=== PATIENT | female | born 1970 | race African-American/Black ===

== ENCOUNTER 2018-11-30 13:12 | Outpatient (CLI) | payer OTHER ==
--- NOTE | 2018-11-30 14:50 | Ultrasound Report ---
ULTRASOUND PELVIC COMPLETE ULTRASOUND TRANSVAGINAL HISTORY: Pelvic pain TECHNIQUE: Transabdominal and transvaginal ultrasound with color Doppler imaging. FINDINGS: The uterus is anteverted. The uterus measures 8.6 x 4.7 x 4.9 cm. No uterine mass is identified. A 1 cm nabothian cyst is noted in the cervix. The endometrium measures 1 cm in thickness. There are 2 tiny cystic areas within the endometrium whic h probably represent tiny endometrial cysts. No obvious pole within the structures. The right ovary is unremarkable measuring 2.1 x 1.0 x 1.8 cm. The left ovary measures 1.8 x 1.4 x 2.9 cm. A 1.4 x 0.9 cm simple cyst is noted in the left ovary. No pelvic fluid collection. IMPRESSION: 1.4 cm left ovarian cyst. Tiny cystic areas in the endometrium as described above. Nabothian cyst in the cervix. Signer Name: Paco Azul Jr, MD Signed: 11/30/2018 2:46 PM Workstation Name: [id number]
--- NOTE | 2018-11-30 15:58 | Mammography Report ---
BILATERAL DIGITAL SCREENING MAMMOGRAMS WITH CAD INDICATION: Screening. COMPARISONS: None available. However she has apparently had a prior mammogram at [facility]. FINDINGS: Craniocaudal and mediolateral oblique views of both breasts were obtained using 2-D digital acquisition.In addition to standard review, the examination was analyzed for possible abnormalities using a computer-assisted detection device (iCAD). The breast tissue is heterogeneously dense, which may obscure small masses. Bilateral parenchymal asymmetries require comparison with the prior mammogram or additional imaging. IMPRESSION: Comparison with the previous mammogram is required. We will attempt to obtain a prior mammogram for c omparison. If we did not obtain a prior mammogram within 30 days, a revised report will be issued rec ommending a recall for additional imaging. Please be advised that the patient should not schedule an appointment for return until adequate time (at least 2 weeks) has passed breast to obtain the prior m ammogram. BI-RADS CATEGORY 0: INCOMPLETE - NEED ADDITIONAL IMAGING EVALUATION AND/OR PRIOR MAMMOGRAMS FOR COMP ARISON Information is entered into a reminder system for a target due date for the next mammogram. The resul ts and recommendations were sent to the patient by mail. Signer Name: Livan Adkins MD Signed: 11/30/2018 3:54 PM Workstation Name: [id number]
== END 2018-11-30 13:13 | disposition home or self-care (01) ==
LOC: US 13:12
PROVIDERS: ATTEND General Practice
DX: Z12.11 Encounter for screening for malignant neoplasm of colon (principal); N83.202 Unspecified ovarian cyst, left side; N88.8 Other specified noninflammatory disorders of cervix uteri
CPT/HCPCS: 76830; 76856; 77067

== ENCOUNTER 2019-06-18 11:21 | Outpatient (CLI) | payer OTHER ==
--- NOTE | 2019-06-18 15:30 | Mammography Report ---
RIGHT DIGITAL DIAGNOSTIC MAMMOGRAM WITH CAD 06/18/2019 RIGHT LIMITED BREAST ULTRASOUND INDICATION: Right breast mass. She had an abnormal screening mammogram here 11/30/2018 and had subsequ ent workup at either [facility]. A right breast biopsy was recommended. The patie nt returns here for a second opinion. TECHNIQUE: Digital right mammographic imaging was performed. Limited ultrasound was performed. This examination was interpreted with the benefit of Computer-Aided Detection (CAD) analysis. COMPARISON: 11/30/2018 screening mammogram. I have a CD from [facility] but the pr ogmars does not open to allow me to review the images. FINDINGS: Breast Density: The breast is heterogeneously dense, which may obscure small masses. MAMMOGRAPHIC FINDINGS: Satisfactory effacement of previously identified asymmetries on a spot MLO vie w and a spot compression CC view. However, an upper asymmetry is identified on a lateral view. ULTRASOUND FINDINGS: Targeted ultrasound evaluation was performed of the area of interest. Ultrasou nd of the upper right breast was performed and demonstrated an irregular solid heterogeneous hypoecho ic mass at 12:00 7 cm from the nipple. Borders are indistinct but it produces shadowing. It measures 6 x 4 x 6 mm and correlates with the mammographic density on the lateral view. By report it seems to correlate with the lesion identified at either [facility]. IMPRESSION: A suspicious 6 mm right breast mass at 12:00 7 cm from the nipple. Recommend ultrasound-g uided needle biopsy. I discussed the findings and the recommendation for ultrasound-guided needle biopsy with the patient at the time of the exam. She stated that she would like to return to [facility] for the biopsy. Follow up recommendation: Biopsy BI-RADS Category 4: Suspicious for Malignancy. A "normal" or negative report should not discourage follow up or biopsy of a clinically significant f inding. A written summary of these findings will be mailed to the patient. The patient will be entered into a mammography reporting system which will generate a reminder letter for the patient's next appointmen t at the appropriate interval. According to the [employer], yearly mammograms are recommended starting at age 40 and continuing as long as a woman is in good health. Breast MRI is recommended for women with an tawny roximately 20-25% or greater lifetime risk of breast cancer, including women with a strong family his tory of breast or ovarian cancer and women who have been treated for Hodgkin's disease. Signer Name: Livan Adkins MD Signed: 06/18/2019 3:25 PM Workstation Name: [id number]
== END 2019-06-18 11:22 | disposition home or self-care (01) ==
LOC: MAMMO 11:21
PROVIDERS: ATTEND Internal Medicine
DX: R92.2 Inconclusive mammogram (principal)

== ENCOUNTER 2020-08-01 16:08 | Outpatient (CLI) | payer OTHER ==
--- NOTE | 2020-08-01 18:10 | Mammography Report ---
DIGITAL SCREENING MAMMOGRAM, 08/01/2020 CLINICAL INFORMATION / INDICATION: Routine screening mammography. TECHNIQUE: Digital bilateral 2D mammography was obtained in the craniocaudal and mediolateral obliqu e projections. COMPARISON: Prior mammogram 11/30/2018 FINDINGS: Breast Density: The breasts are heterogeneously dense, which may obscure small masses. No dominant mass, suspicious calcifications, or architectural distortion in either breast. There is a new biopsy clip at site of previously described nodular density in the posterior 12:00 rig ht breast. Otherwise, there has been no significant change compared with the prior examination. IMPRESSION: No mammographic evidence of malignancy. Follow up recommendation: Routine yearly BI-RADS Category 2: Benign. A "normal" or negative report should not discourage follow up or biopsy of a clinically significant f inding. A written summary of these findings will be mailed to the patient. The patient will be entered into a mammography reporting system which will generate a reminder letter for the patient's next appointmen t at the appropriate interval. The [employer] recommends yearly mammograms starting at age 40 and continuing as l margaret as a woman is in good health. Breast MRI is recommended for women with an approximate 20-25% or greater lifetime risk of breast cancer, including women with a strong family history of breast or ova boni cancer or who have been treated for Hodgkin's disease. Signer Name: Nia Daly MD Signed: 08/01/2020 6:06 PM Workstation Name: [id number]
== END 2020-08-01 16:09 | disposition home or self-care (01) ==
LOC: SPVWC 16:08
PROVIDERS: ATTEND Family Medicine
DX: Z12.31 Encounter for screening mammogram for malignant neoplasm of breast (principal); N64.89 Other specified disorders of breast
CPT/HCPCS: 77067